=== PATIENT | female | born 1940 | race Caucasian/White ===

== ENCOUNTER 2018-06-19 07:20 | Day surgery (SDC) | payer MEDICARE, BC ==
[2018-06-19] VITALS (7 sets, daily range): BP systolic 122–152; BP diastolic 45–78; PULSE 73–92; TEMP 97.5–98.1
[~2018-06-19] VITALS: Ht 152.4 cm; Wt 53.3 kg
[2018-06-19 08:31] LABS: HEMATOCRIT 38.6 % (37.0-47.0); HEMOGLOBIN 12.5 g/dl (12.5-16.0); MEAN CELL VOLUME 95 fl (80.0-100.0); MEAN CORPUSCULAR HEMOGLOBIN 31 pg (27.0-31.0); MEAN CORPUSCULAR HGB CONC 32 g/dl (33.0-37.0); MEAN PLATELET VOLUME 9.9 fl (7.4-10.4); PLATELET COUNT 309 K/mm3 (130-400); RED BLOOD COUNT 4.06 M/mm3 (4.10-5.30); REDCELL DISTRIBUTION WIDTH-CV 14.6 % (11.5-14.5)
--- NOTE | 2018-06-19 08:32 | NUR ---
Initial visit; Patient thanked Graduate Civil Engineer for offering comfort and prayer prior to her Procedure. Graduate Civil Engineer will keep Irma in her prayers.
[2018-06-19] MEDS ORDERED: MULTI VITAMINS1 TAB PO (08:33)
[2018-06-19] MEDS ORDERED: NATURAL IRON65 MG PO (08:34)
[2018-06-19] MEDS ORDERED: B-121000 MCG PO (08:36)
[2018-06-19 08:40] LABS: CALCIUM 9.7 mg/dL (8.4-10.2); CREATININE, serum 0.8 mg/dL (0.52-1.25); POTASSIUM 4.1 mmol/L (3.4-5.0)
--- NOTE | 2018-06-19 11:18 | NUR ---
The patient appears to be resting comfortably on the cart at this time. The patient denies any needs at this time. The alicenet's family remains at her bedside. Will continue to monitor the patient.
[2018-06-19] MEDS ORDERED: PERCOCET 325 MG1 TA2 PO (14:37)
[2018-06-19] MEDS ORDERED: MOTRIN 600600 MG/TAB PO (14:38)
--- NOTE | 2018-06-19 17:15 | NUR ---
PATIENT ADMITED INTO ROOM 321-2 POST OP LEFT BREAST BIOSPSY WITH INCISIONS X2 CD&I WITH [place] SET. NO C/O PAIN. PATIENT IS ORIENTED BUT DROWSY POST OP. HEAD TO TOE ASSESSMENT COMPLETE. NOTED COARSE A&P LUNG CASTELL[place]O WITH EXP WHEEZES. PATIENT HAS HX OF SMOKING. FAMILY AT BEDSIDE ASKING ABOUT DISCHARGE. PATIENT PLANNING TO DISCHARGE HOME. HAS PRESCRIPTIONS.
--- NOTE | 2018-06-19 19:30 | NUR ---
Patient up to bathroom, voids without problem and back to bed. Reports having a headache. Has 2 incisions in left axillae, glued and dry. Patient ready to discharge. Spouse and daughter at bedside. DC'd SL to right hand, angiocath intact.
--- NOTE | 2018-06-19 19:45 | NUR ---
Reviewed discharge instructions with patient and daughter. Questions answered. Patient aware she needs to follow up in the clinic in one week.
--- NOTE | 2018-06-19 19:53 | NUR ---
Taken via w/c to private car for discharge home. Patient belongings sent with her as well as discharge instructions.
== END 2018-06-19 19:53 | disposition home or self-care (01) ==
LOC: SDCO 07:20 → SURG 17:15 → SDCO 19:53
PROVIDERS: Surgery
DX: C50.412 Malignant neoplasm of upper-outer quadrant of left female breast (principal); C77.3 Secondary and unspecified malignant neoplasm of axilla and upper limb lymph nodes; Z17.0 Estrogen receptor positive status [ER+]; F17.210 Nicotine dependence, cigarettes, uncomplicated; Z79.899 Other long term (current) drug therapy; J44.9 Chronic obstructive pulmonary disease, unspecified; K21.9 Gastro-esophageal reflux disease without esophagitis; M15.9 Polyosteoarthritis, unspecified; E78.2 Mixed hyperlipidemia; I34.0 Nonrheumatic mitral (valve) insufficiency; R01.1 Cardiac murmur, unspecified; I65.21 Occlusion and stenosis of right carotid artery
CPT/HCPCS: OP; A9541; J1100; J2250; J2405; J2704; J3010; J7120

== ENCOUNTER 2018-07-03 06:28 | Day surgery (SDC) | payer MEDICARE, BC ==
[~2018-07-03] VITALS: Ht 154.9 cm; Wt 53.6 kg
[2018-07-03] VITALS (7 sets, daily range): BP systolic 121–137; BP diastolic 41–56; PULSE 66–79; TEMP 97.6
[~2018-07-03 06:28] MED LIST: B-121000 MCG PO; MOTRIN 600600 MG/TAB PO; MULTI VITAMINS1 TAB PO; NATURAL IRON65 MG PO; PERCOCET 325 MG1 TA2 PO
[2018-07-03] MEDS ORDERED: B-12 250 MCG PO (07:22)
[2018-07-03] MEDS ORDERED: MOTRIN 600600 MG/TAB PO (10:42)
[2018-07-03] MEDS ORDERED: NORCO 325 MG-51 TAB PO (10:42)
--- NOTE | 2018-07-03 11:17 | NUR ---
The patient arrived back to [facility] from the recovery room at this time. The patient appears to be resting comfortably on the cart at this time. The patient requests to try some coffee and water at this time. Post operative vital signs were started at this time. The patient's incision to her left breast appears clean, dry, and intact. The patient's family was brought back to be at her bedside. Will continue to monitor the patient.
--- NOTE | 2018-07-03 11:32 | NUR ---
The patient appears to be tolerating the fluids well and agrees to try some chocolate pudding. The patient's family remains at her bedside. Vital signs appear stable. Will continue to monitor the patient.
--- NOTE | 2018-07-03 11:47 | NUR ---
The patient appears to be tolerating the pudding well. The patient reports some increased pain at her incision site. Will continue to monitor the patient.
--- NOTE | 2018-07-03 12:05 | NUR ---
The patient was given a PRN dose of [place] one tab for complaints of increased pain. The patient was also given more coffee at this time. Call light is within reach. Will continue to monitor the patient.
--- NOTE | 2018-07-03 12:32 | NUR ---
The patient appears to be resting comfortably on the cart drinking her coffee at this time. The patient's family remains at her bedside at this time. Call light is within reach. Will continue to monitor the patient.
--- NOTE | 2018-07-03 13:05 | NUR ---
The patient ambulated to the bathroom with the stand by assistance of one nurse and appeared to tolerate the activity well. The patient voided without difficulty and voices a desire to be discharged home. Will continue to monitor the patient.
--- NOTE | 2018-07-03 13:20 | NUR ---
Discharge instructions were reviewed with the patient and her family at this time. They all verbalized understanding and have no questions for the nurse at this time. The patient is dressed and ready to be escorted out.
--- NOTE | 2018-07-03 13:28 | NUR ---
The patient was escorted out via wheelchair to a private vehicle by JULIEN Sweeney. The patient's belongings and discharge paperwork were sent with her. The patient's family is present to drive her home.
== END 2018-07-03 13:28 | disposition home or self-care (01) ==
LOC: SDCO 06:28
DX: C50.912 Malignant neoplasm of unspecified site of left female breast (principal); J44.9 Chronic obstructive pulmonary disease, unspecified; M19.90 Unspecified osteoarthritis, unspecified site; K21.9 Gastro-esophageal reflux disease without esophagitis; I34.0 Nonrheumatic mitral (valve) insufficiency; E78.2 Mixed hyperlipidemia; F17.210 Nicotine dependence, cigarettes, uncomplicated; Z85.3 Personal history of malignant neoplasm of breast; Z80.3 Family history of malignant neoplasm of breast; Z83.3 Family history of diabetes mellitus; Z88.0 Allergy status to penicillin; Z88.2 Allergy status to sulfonamides
CPT/HCPCS: J0690; J1100; J2250; J2270; J2405; J2704; J2795; J3010; J7120